=== PATIENT | female | born 1970 | race Caucasian/White ===

== ENCOUNTER 2020-05-06 10:01 | Emergency (ER) | payer SELFPAY ==
[2020-05-06] VITALS (10 sets, daily range): BP systolic 129–169; BP diastolic 93–123; PULSE 86–97; RESP 17–24; TEMP 36.4; O2SAT 90–100
--- NOTE | ~2020-05-06 | XR_ITS ---
EXAMINATION: XR chest 1V portable EXAM DATE: 05/06/2020 10:29 INDICATION: Frontal chest pain for several weeks. TECHNIQUE: Portable AP frontal chest x-ray was obtained. There is no prior study for comparison. FINDINGS: There is mild thoracic dextroscoliosis. The lungs are clear. There are no pleural effusion s. The cardiomediastinal silhouette is within normal limits. There is no pneumothorax suspected. T he bones and soft tissues are unremarkable. IMPRESSION: No acute cardiopulmonary findings. Reviewed, dictated and finalized at location A. RAM PLANNER
--- NOTE | 2020-05-06 10:09 | ECG_ITS ---
Measurements Intervals [place] Rate: 95 P: 29 IN: 158 QRS: 23 QRSD: 89 T: 49 QT: 367 QTc: 462 Interpretive Statements SINUS RHYTHM DELAYED PRECORDIAL R/S TRANSITION BASELINE ARTIFACT- I, III BORDERLINE ECG Electronically Signed On 05-06-2020 13:42:00 CLICKER OPERATOR by Angel Crawford D.O.
[2020-05-06 11:21] LABS: Add Urine Microscopic? YES; Appearance Urine Clear (Clear); Bilirubin Urine Negative (Negative); Blood Urine Negative (Negative); Color Urine Yellow (Yellow); Glucose Urine UA Negative (Negative); Ketones Urine Trace mg/dL (Negative); Leukocyte Esterase Ur Negative LEU/UL (Negative); Mucus Urine Rare /lpf; Nitrate Urine Negative (Negative); Protein Urine 1+ mg/dL (Negative); RBC Urine 0-2 /hpf (0-2); Specific Grav Ur 1.029 (1.001-1.035); Squamous Epithelial Cell Urine Occasional /hpf (Few); WBC Urine 0-3 /hpf
[2020-05-06 11:30] LABS: Troponin I < 0.012 ng/mL (0.000-0.034)
[2020-05-06 11:37] LABS: Barbiturate Screen Urine Negative (Negative); Benzodiazepines Screen Urine Negative (Negative)
--- NOTE | 2020-05-06 11:49 | ED.CHESTPAIN ---
HPI - Chest Pain General Chief Complaint: Chest Pain Stated Complaint: Cp - several months Time Seen by Provider: 05/06/20 10:02 Source: patient, EMS and police Mode of arrival: EMS Limitations: no limitations History of Present Illness HPI narrative: Patient is a 49-year-old female who presents to emergency department per EMS for chest pain that was short-lived this morning patient was found by police parked with her car door open with methamphetamine in the car patient then complained of chest discomfort brought by EMS has no complaints on arrival denies any drug use. Related Data Allergies Allergy/AdvReac Type Severity Reaction Status Date / Time No Known Allergies Allergy Verified 05/06/20 10:06 Review of Systems Review of Systems: All systems reviewed & are unremarkable except as noted in HPI and below PMFSH Social History Social History (Updated 05/06/20 @ 11:51 by Mark Treadwell PA-C) Smoking status: Current every day smoker Alcohol intake: unknown Substance use: unknown Living arrangements: with family Occupation/Education: occupation Gender identity (if verbalized by the patient): Female Exam Narrative: Exam Narrative: GENERAL: Well-appearing, well-nourished, and in no acute distress. HEAD: Normocephalic, atraumatic. EYES: PERRLA and EOMI. ENT: Nares clear, no rhinorrhea or epistaxis. Mucous membranes moist. CHEST: Clear to auscultation. No respiratory distress. No wheezes rales or rhonchi HEART: Regular rate and rhythm. No murmur heard. Normal peripheral pulses. ABDOMEN: Soft, nontender, nondistended EXTREMITIES: Normal range of motion. No edema. SKIN: Warm, dry, no rash. NEURO: No focal deficits. Alert and oriented x3. PSYCH: Acutely anxious with flat affect Course Course Emergency Course: Patient in the room in no distress aware of case findings treatment plan diagnosis in the room no distress will be discharged home agreeing to follow-up with primary care Vital Signs Vital signs: Vital Signs Temperature 97.6 F 05/06/20 09:59 Pulse Rate 97 05/06/20 09:59 Respiratory Rate 20 05/06/20 09:59 Blood Pressure 157/120 H 05/06/20 09:59 Pulse Oximetry 97 05/06/20 09:59 Temperature 97.6 F 05/06/20 09:59 Pulse Rate 93 05/06/20 11:33 Respiratory Rate 21 H 05/06/20 11:33 Blood Pressure 129/93 H 05/06/20 11:33 Pulse Oximetry 99 05/06/20 11:33 MDM - Chest Pain MDM Narrative Medical decision making narrative: Patients EKGs and labs are without significant high risk changes. Cardiac risk factors were reviewed. Patient is felt likely to be low risk for ACS and reasonable for further risk stratification testing as an outpatient. Pain was not sudden or maximal in onset without tearing or ripping. quality. No other signs or symptoms to suggest aortic dissection. A low-risk Wells criteria is noted. PE is felt to be unlikely. No pneumonia or URI symptoms were seen on evaluation today. Patient is felt to b reasonable for continued evaluation as an outpatient. Lab Data Labs: Lab Results 05/06/20 05/06/20 05/06/20 Range/Units 10:21 11:10 11:10 Troponin I < 0.012 (0.000-0.034) ng/mL Urine Color Yellow (Yellow) Urine Appearance Clear (Clear) Urine pH 6.0 (5.0-9.0) Ur Specific [place] 1.029 (1.001-1.035) Urine Protein 1+ H (Negative) mg/dL Urine Glucose (UA) Negative (Negative) mg/dL Urine Ketones Trace (Negative) mg/dL Ur Blood (Man) Negative (Negative) Urine Nitrate Negative (Negative) Urine Bilirubin Negative (Negative) Urine Urobilinogen 4.0 H (<2.0) mg/dL Leukocyte Esterase Rfl Negative (Negative) JACQUELYN/UL Urine RBC 0-2 (0-2) /hpf Urine WBC 0-3 /hpf Ur Squamous Epith Cells Occasional (Few) /hpf Urine Mucus Rare /lpf Urine Opiates Screen Pending Urine Methadone Screen Pending Ur Barbiturates Screen Negative (Negative) Ur Phencyclidine Scrn Pending Ur
[2020-05-06 12:11] LABS: Cannabinoid Screen Urine Positive (Negative); Cocaine Screen Urine Negative (Negative); Methadone Screen Urine Negative (Negative); Opiate Screen Urine Negative (Negative); Phencyclidine Screen Urine Negative (Negative)
[2020-05-06 12:14] LABS: Amphetamine Screen Urine Positive (Negative)
== END 2020-05-06 12:09 | disposition home or self-care (01) ==
PROVIDERS: Emergency Medicine Emergency Medical Services; Emergency Provider Emergency Medicine
DX: R07.9 Chest pain, unspecified (principal); F19.10 Other psychoactive substance abuse, uncomplicated; F17.200 Nicotine dependence, unspecified, uncomplicated
CPT/HCPCS: 36415; 71045; 80307; 81001; 84484; 93005; 99284